=== PATIENT | male | born 1995 | race Caucasian/White ===

== ENCOUNTER 2021-02-21 20:04 | Emergency (ER) | payer SELFPAY ==
[2021-02-21] MEDS ORDERED: Sodium Chloride 0.9% 10 ML Syringe FLUSH PRN (20:46)
[2021-02-21] MEDS ORDERED: Metoclopramide 10 MG/2 ML SDV IVPUSH ONE (20:56)
[2021-02-21] MEDS ORDERED: Sodium Chloride 0.9% 1,000 ML IV SCH (21:00)
[2021-02-21] MEDS ORDERED: Pantoprazole 80 MG in Sodium Chloride 0.9% 100 ML IV SCH (21:00)
[2021-02-21] MEDS ORDERED: Prochlorperazine 10 MG/2 ML SDV IVPUSH ONE (23:05)
--- NOTE | 2021-02-21 23:07 | EDM.PDOC ---
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 The patient is being followed by nephrology in [place] where he lives and his last GFR was calculated at 19 with a creatinine of 3.8. He is currently being evaluated for renal transplant. Family is up here vacationing and the patient started having nausea and vomiting yesterday. He has a history of having intractable vomiting and once he gets started it is difficult to get him to stop and sometimes requires hospitalization to keep him hydrated. Mother is a nurse practitioner and hospitalist in [facility]. denies pain Pain Score (Numeric/FACES): 0 - Related Data Allergies Allergy/AdvReac Type Severity Reaction Status Date / Time No Known Allergies Allergy Verified 02/21/21 20:35 Home Meds: Home Meds Cholecalciferol (Vitamin D3) [Vitamin D] 1,000 unit PO BEDTIME 02/21/21 [History] Losartan [Cozaar] 25 mg PO BEDTIME 02/21/21 [History] Omeprazole 20 mg PO ASDIRECTED PRN 02/21/21 [History] Prochlorperazine [Compazine] 25 mg RC QID PRN #20 supp.rect 02/21/21 [Rx] Past Medical History HEENT History: Reports: Other (See Below) Other HEENT History: glasses Gastrointestinal History: Reports: Other (See Below) Other Gastrointestinal History: acid reflux. cyclical vomiting symdrome Genitourinary History: Reports: Renal Disease, Other (See Below) Other Genitourinary History: IgA nephropathy Psychiatric History: Reports: Other (See Below) Other Psychiatric History: downs syndrome - Past Surgical History Male Surgical History: Reports: Other (See Below) Other Male Surgeries/Procedures: undescended testicle surgery Social & Family History - Tobacco Use Tobacco Use Status *Q: Never Tobacco User - Recreational Drug Use Recreational Drug Use: No ED ROS GENERAL - Review of Systems Review Of Systems: See Below Constitutional: Reports: Fatigue, Decreased Appetite HEENT: Reports: No Symptoms Respiratory: Reports: No Symptoms Cardiovascular: Reports: No Symptoms Endocrine: Reports: No Symptoms GI/Abdominal: Reports: Decreased Appetite, Nausea, Vomiting : Reports: Other (History of 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 stage IV renal failure) Musculoskeletal: Reports: No Symptoms Neurological: Reports: Dizziness Psychiatric: Reports: No Symptoms Hematologic/Lymphatic: Reports: No Symptoms Immunologic: Reports: No Symptoms ED EXAM, GENERAL - Physical Exam Exam: See Below Exam Limited By: No Limitations General Appearance: Alert, Moderate Distress Eye Exam: Bilateral Eye: EOMI, PERRL Throat/Mouth: Normal Voice, No Airway Compromise, Other (Dry mucous membranes) Head: Atraumatic, Normocephalic Neck: Normal Inspection, Supple Respiratory/Chest: No Respiratory Distress, Lungs Clear, Normal Breath Sounds Cardiovascular: Normal Peripheral Pulses, Regular Rate, Rhythm Peripheral Pulses: 2+: Radial (L), Radial (R) GI/Abdominal: Normal Bowel Sounds, Soft, Tender (Mild epigastric tenderness). No: Guarding, Rigid, Rebound Extremities: Normal Inspection, Normal Range of Motion Neurological: Alert, Oriented, Normal Cognition, No Motor/Sensory Deficits Psychiatric: Normal Affect Skin Exam: Warm, Pallor Lymphatic: No Adenopathy Course - Vital Signs Last Recorded V/S: Last Vital Signs Temp 36.6 C 02/21/21 23:21 Pulse 95 02/21/21 23:21 Resp 16 02/21/21 23:21 BP 146/94 H 02/21/21 23:21 Pulse Ox 99 02/21/21 23:21 - Orders/Labs/Meds Orders: Active Orders 24 hr Category Date Time Status Pantoprazole [ProTONIX IV] 80 mg Med 02/21/21 21:00 Active Sodium Chloride 0.9% [Normal Saline] 100 ml IV .BOLUS Sodium Chloride 0.9% [Normal Saline] 1,000 ml Med 02/21/21 21:00 Active IV ASDIRECTED Sodium Chloride 0.9% [Saline Flush] Med 02/21/21 20:46 Active 10 ml FLUSH ASDIRECTED PRN Saline Lock Insert [OM.PC] Routine Oth 02/21/21 20:46 Ordered Medication Orders Sodium Chloride (Normal Saline) 1,000 mls @ 999 mls/hr IV ASDIRECTED TANGELA Last Admin: 02/21/21 21:13 Dose: 999 mls/hr Documented by: ROBBY Pantoprazole Sodium 80 mg/ (Sodium Chloride) 100 mls @ 200 mls/hr IV .BOLUS TANGELA Last Admin: 02/21/21 21:36 Dose: 200 mls/hr Documented by: ROBBY Sodium Chloride (Sodium Chloride 0.9% 10 Ml Syringe) 10 ml FLUSH ASDIRECTED PRN PRN Reason: Keep Vein Open Last Admin: 02/21/21 21:36 Dose: 10 ml Documented by: ROBBY Labs: Laboratory Tests 02/21/21 02/21/21 02/21/21 Range/Units 20:47 21:16 21:16 WBC 5.0 (4.5-11.0) K/uL RBC 3.44 L (4.30-5.90) M/uL Hgb 9.9 L (12.0-15.0) g/dL Hct 31.2 L (40.0-54.0) % MCV 91 (80-98) fL MCH 29 (27-31) pg MCHC 32 (32-36) % Plt Count 169 (150-400) K/uL Neut % (Auto) 71.8 H (36-66) % Lymph % (Auto) 14.9 L (24-44) % Camp % (Auto) 12.1 H (2-6) % Eos % (Auto) 0.8 L (2-4) % Baso % (Auto) 0.4 (0-1) % ABG Hemoglobin 10.5 L (13.5-18.0) g/dL ABG Oxyhemoglobin 51.8 % ABG Carboxyhemoglobin 1.7 H (0.0-1.6) % ABG Methemoglobin 0.7 % VBG pH 7.335 L (7.350-7.450) VBG pCO2 43.7 mm/Hg VBG pO2 29.5 mm/Hg VBG HCO3 22.7 mmol/L VBG Total CO2 21.4 mmol/L VBG O2 Saturation 53.1 VBG O2 Content 7.7 %vol VBG Base Excess -2.5 mm/L O2 Delivery Device Room air Sodium (140-148) mmol/L Potassium (3.6-5.2) mmol/L Chloride (100-108) mmol/L Carbon Dioxide (21-32) mmol/L Anion Gap (5.0-14.0) mmol/L BUN (7-18) mg/dL Creatinine (0.8-1.3) mg/dL Est Cr Clr Drug Dosing mL/min Estimated GFR (MDRD) (>60) Glucose (74-106) mg/dL Calcium (8.5-10.1) mg/dL Total Bilirubin (0.2-1.0) mg/dL AST (15-37) U/L ALT (12-78) U/L Alkaline Phosphatase (46-116) U/L Total Protein (6.4-8.2) g/dL Albumin (3.4-5.0) g/dL Globulin (2.3-3.5) g/dL Albumin/Globulin Ratio (1.2-2.2) Urine Color Yellow (YELLOW) Urine Appearance Cloudy A (CLEAR) Urine pH 5.5 (5.0-8.0) Ur Specific Emerson 1.025 (1.008-1.030) Urine Protein >=300 H (NEGATIVE) mg/dL Urine Glucose (UA) Negative (NEGATIVE) mg/dL Urine Ketones Negative (NEGATIVE) mg/dL Urine Occult Blood Large H (NEGATIVE) Urine Nitrite Negative (NEGATIVE) Urine Bilirubin Negative (NEGATIVE) Urine Urobilinogen 0.2 (0.2-1.0) EU/dL Ur Leukocyte Esterase Negative (NEGATIVE) Urine RBC Packed H (0-5) Urine WBC 0-5 (0-5) Ur Epithelial Cells Rare Amorphous Sediment Rare Urine Bacteria Occasional Urine Mucus Rare Urine Other See note 02/21/21 Range/Units 21:16 WBC (4.5-11.0) K/uL RBC (4.30-5.90) M/uL Hgb (12.0-15.0) g/dL Hct (40.0-54.0) % MCV (80-98) fL MCH (27-31) pg MCHC (32-36) % Plt Count (150-400) K/uL Neut % (Auto) (36-66) % Lymph % (Auto) (24-44) % Camp % (Auto) (2-6) % Eos % (Auto) (2-4) % Baso % (Auto) (0-1) % ABG Hemoglobin (13.5-18.0) g/dL ABG Oxyhemoglobin % ABG Carboxyhemoglobin (0.0-1.6) % ABG Methemoglobin % VBG pH (7.350-7.450) VBG pCO2 mm/Hg VBG pO2 mm/Hg VBG HCO3 mmol/L VBG Total CO2 mmol/L VBG O2 Saturation VBG O2 Content %vol VBG Base Excess mm/L O2 Delivery Device Sodium 141 (140-148) mmol/L Potassium 5.5 H (3.6-5.2) mmol/L Chloride 103 (100-108) mmol/L Carbon Dioxide 24 (21-32) mmol/L Anion Gap 19.5 H (5.0-14.0) mmol/L BUN 38 H (7-18) mg/dL Creatinine 4.5 H* (0.8-1.3) mg/dL Est Cr Clr Drug Dosing 23.05 mL/min Estimated GFR (MDRD) 16 L (>60) Glucose 97 (74-106) mg/dL Calcium 9.3 (8.5-10.1) mg/dL Total Bilirubin 0.3 (0.2-1.0) mg/dL AST 15 (15-37) U/L ALT 21 (12-78) U/L Alkaline Phosphatase 72 (46-116) U/L Total Protein 7.1 (6.4-8.2) g/dL Albumin 3.7 (3.4-5.0) g/dL Globulin 3.4 (2.3-3.5) g/dL Albumin/Globulin Ratio 1.1 L (1.2-2.2) Urine Color (YELLOW) Urine Appearance (CLEAR) Urine pH (5.0-8.0) Ur Specific Emerson (1.008-1.030) Urine Protein (NEGATIVE) mg/dL Urine Glucose (UA) (NEGATIVE) mg/dL Urine Ketones (NEGATIVE) mg/dL Urine Occult Blood (NEGATIVE) Urine Nitrite (NEGATIVE) Urine Bilirubin (NEGATIVE) Urine Urobilinogen (0.2-1.0) EU/dL Ur Leukocyte Esterase (NEGATIVE) Urine RBC (0-5) Urine WBC (0-5) Ur Epithelial Cells Amorphous Sediment Urine Bacteria Urine Mucus Urine Other Meds: Medications Generic Name Dose Route Start Last Admin Trade Name Freq PRN Reason Stop Dose Admin Sodium Chloride 1,000 mls @ 999 mls/hr 02/21/21 21:00 02/21/21 21:13 Normal Saline IV 999 mls/hr ASDIRECTED TANGELA Administration Pantoprazole Sodium 80 mg/ 100 mls @ 200 mls/hr 02/21/21 21:00 02/21/21 21:36 Sodium Chloride IV 200 mls/hr .BOLUS TANGELA Administration Sodium Chloride 10 ml 02/21/21 20:46 02/21/21 21:36 Sodium Chloride 0.9% 10 Ml Syringe FLUSH 10 ml ASDIRECTED PRN Administration Keep Vein Open Discontinued Medications Generic Name Dose Route Start Last Admin Trade Name Javedq PRN Reason Stop Dose Admin Metoclopramide HCl 10 mg 02/21/21 20:56 02/21/21 21:35 Metoclopramide 10 Mg/2 Ml Sdv IVPUSH 02/21/21 20:57 10 mg ONETIME ONE Administration Prochlorperazine Edisylate 10 mg 02/21/21 23:05 02/21/21 23:13 Prochlorperazine 10 Mg/2 Ml Sdv IVPUSH 02/21/21 23:06 10 mg ONETIME ONE Administration - Re-Assessments/Exams Free Text/Narrative Re-Assessment/Exam: 02/21/21 23:07 the patient was initially given a liter of IV normal saline and Reglan 10 mg IV push. Labs were obtained including a CBC, comprehensive metabolic panel, venous blood gas, and urinalysis. The CBC shows a leukocyte count of 5.0 with a hemoglobin of 9.9 and hematocrit of 31.2. Platelet count is 169,000. The comprehensive metabolic panel is significant for a sodium of 141 with a potassium of 5.5, chloride of 103 with a bicarbonate of 24, BUN of 38 with a creatinine of 4.5 and a glucose of 97. Patient's GFR is calculated at 16 which is down from his previous at 19. Venous blood gas shows a pH of 7.335, PCO2 of 43.7, PO2 of 29.5, and a bicarbonate of 22.7. Urinalysis shows large blood with packed RBCs and 0-5 WBCs. Protein is greater than 300. I discussed the worsening of the renal function with the patient's mother. We are not at the point where he requires dialysis but we are certainly heading in that direction. My recommendation is after discharge today should probably had back to [place] where his care team is to reevaluate him. At this time, there is no indication that we need to hospitalize him and mom is in agreement with this plan. While getting ready to discontinue the IV fluids because he had received a full liter, the patient started to retch again and we ended up giving him Compazine 10 mg IV push. We will continue to monitor to make sure that his nausea is under control. 02/21/21 23:50 after the Compazine, it appears that his nausea and vomiting are under control. At this time mom feels comfortable taking him home. Plan is for them to return to [place] tomorrow. Departure - Departure Time of Disposition: 23:50 Disposition: Home, Self-Care 01 Clinical Impression: IgA nephropathy determined by biopsy of kidney, Chronic kidney disease, stage IV (severe), Hyperkalemia, Intractable vomiting with nausea - Discharge Information Prescriptions: Prochlorperazine [Compazine] 25 mg RC QID PRN #20 supp.rect PRN Reason: Nausea/Vomiting Referrals: PCP,None [Primary Care Provider] - Forms: ED Department Discharge Care Plan Goals: I have provided a prescription for you for Compazine to fill in the morning. I followed the Phenergan route with the Compazine being a suppository. Good luck with further evaluation and work-up in [place], [place]. I hope that everything works out for you. Sepsis Event Note (ED) - Evaluation Sepsis Screening Result: No Definite Risk - Focused Exam Vital Signs: Vital Signs Temp Pulse Resp BP Pulse Ox 02/21/21 23:21 36.6 C 95 16 146/94 H 99 02/21/21 20:37 36.3 C 97 16 143/103 H 100 02/21/21 20:30 36.3 C 97 16 143/103 H 100 - Problem List & Annotations (1) IgA nephropathy determined by biopsy of kidney SNOMED Code(s): 908957554, 325400836 Code(s): N02.8 - RECURRENT AND PERSISTENT HEMATURIA W OTH MORPHOLOGIC CHANGES Status: Chronic Priority: High Current Visit: Yes (2) Chronic kidney disease, stage IV (severe) SNOMED Code(s): 807983985 Code(s): N18.4 - CHRONIC KIDNEY DISEASE, STAGE 4 (SEVERE) Status: Chronic Priority: High Current Visit: Yes (3) Hyperkalemia SNOMED Code(s): 90125447 Code(s): E87.5 - HYPERKALEMIA Status: Acute Priority: High Current Visit: Yes (4) Intractable vomiting with nausea SNOMED Code(s): 368325140 Code(s): R11.2 - NAUSEA WITH VOMITING, UNSPECIFIED Status: Acute Priority: High Current Visit: Yes - Problem List Review Problem List Initiated/Reviewed/Updated: Yes - My Orders Last 24 Hours: My Active Orders 02/21/21 20:46 Sodium Chloride 0.9% [Saline Flush] 10 ml FLUSH ASDIRECTED PRN Saline Lock Insert [OM.PC] Routine 02/21/21 21:00 Pantoprazole [ProTONIX IV] 80 mg Sodium Chloride 0.9% [Normal Saline] 100 ml IV .BOLUS Sodium Chloride 0.9% [Normal Saline] 1,000 ml IV ASDIRECTED - Assessment/Plan Last 24 Hours: My Active Orders 02/21/21 20:46 Sodium Chloride 0.9% [Saline Flush] 10 ml FLUSH ASDIRECTED PRN Saline Lock Insert [OM.PC] Routine 02/21/21 21:00 Pantoprazole [ProTONIX IV] 80 mg Sodium Chloride 0.9% [Normal Saline] 100 ml IV .BOLUS Sodium Chloride 0.9% [Normal Saline] 1,000 ml IV ASDIRECTED
== END 2021-02-22 00:14 | disposition home or self-care (01) ==
LOC: JP.ED 20:04
DX: N02.8 Recurrent and persistent hematuria with other morphologic changes (principal); N18.4 Chronic kidney disease, stage 4 (severe); R11.2 Nausea with vomiting, unspecified; E87.5 Hyperkalemia; K21.9 Gastro-esophageal reflux disease without esophagitis
CPT/HCPCS: 36415; 80053; 81001; 82803; 85025; 96365; 96375; 99284; C9113; J0780; J2765; J7030